=== PATIENT | female | born 1985 ===

== ENCOUNTER 2024-05-04 15:22 | Emergency (ER) | payer MEDICAID ==
[~2024-05-04] VITALS: Ht 162.6 cm; Wt 60.0 kg
[2024-05-04 15:24] VITALS: BP 118/77; PULSE 87; RESP 18; TEMP 97.9; O2SAT 100
[2024-05-04] MEDS ORDERED: KETO10TA2 PO (17:05)
[2024-05-04] MEDS: KETOROLAC TROMETHAMINE 60 MG/2 ML VIAL IM ONE (17:17)
== END 2024-05-04 17:34 | disposition home or self-care (01) ==
LOC: EMS 15:30
DX: M77.11 Lateral epicondylitis, right elbow (principal); Z88.0 Allergy status to penicillin; Z91.011 Allergy to milk products; Z88.8 Allergy status to other drugs, medicaments and biological substances
CPT/HCPCS: 99283; 96372; J1885